=== PATIENT | male | born 1930 | race African-American/Black ===

== ENCOUNTER 2017-03-11 07:05 | Outpatient (CLI) | payer MEDICARE | END 2017-03-11 07:06 | disposition home or self-care (01) | LOC: BICULT 07:05 | PROVIDERS: ATTEND Urology | DX: N28.1 Cyst of kidney, acquired (principal); N40.1 Benign prostatic hyperplasia with lower urinary tract symptoms | CPT/HCPCS: 36415; 76770; 80048; 81001; 87086 ==

== ENCOUNTER 2019-07-28 09:04 | Outpatient (CLI) | payer MEDICARE ==
--- NOTE | 2019-07-28 09:53 | ULT ---
Exam: Bilateral renal ultrasound HISTORY: Renal cyst. Benign prosthetic hypertrophy COMPARISON: None FINDINGS: Right kidney: Normal cortical echotexture. No hydronephrosis. Multiple anechoic foci involving the ri ght renal cortex. Exophytic cyst in the midpole measuring 6.3 x 5.5 x 5.6 cm. Additional cysts in the lower pole of the right kidney measuring 3.4 x 3.4 x 3.5 cm and 3.1 x 4.2 x 3.7 cm Right kidney measurements: 4.5 x 4.7 x 10.6 cm. Left kidney: Normal cortical echotexture. No hydronephrosis. Multiple anechoic foci in the left renal cortex. Largest focus is in the lower pole measuring 6.9 x 6.4 x 6.5 cm, compatible with a exophytic cortical cyst Left kidney measurements 6.7 x 5.9 x 11.8 cm. Urinary bladder: Normal bladder mucosa. Bladder volume is 71 mL. Left ureteral jet is identified. IMPRESSION: 1. No hydronephrosis 2. Bilateral renal cortical cysts.
== END 2019-07-28 09:05 | disposition home or self-care (01) ==
LOC: BICULT 09:04
PROVIDERS: ATTEND Urology
DX: N28.1 Cyst of kidney, acquired (principal); N40.1 Benign prostatic hyperplasia with lower urinary tract symptoms; R33.8 Other retention of urine
CPT/HCPCS: 36415; 76770; 80048; 81001